=== PATIENT | male | born 1980 | race Caucasian/White ===

== ENCOUNTER 2016-10-15 12:37 | Emergency (ER) | payer OTHER ==
[~2016-10-15 12:37] MED LIST: DRV65 PO
[2016-10-15 12:41] VITALS: TEMP 36.7
[2016-10-15] MEDS ORDERED: CEFAZOLIN SOD 1000MG/55 ML D5W IV STA (13:07)
[2016-10-15] MEDS ORDERED: IBUPROFEN 800 MG TAB PO STA (13:07)
[2016-10-15] MEDS ORDERED: SULFAMETHOXAZOLE/TRIMETHOPRIM DS 800/160MG TAB PO STA (13:07)
[2016-10-15] MEDS ORDERED: PRLSR20 PO (13:17)
[2016-10-15] MEDS ORDERED: NAPR1TAB9 PO (13:19)
[2016-10-15 13:44] LABS: BASO % 0.4 %; BASO ABS # 0.03 K/uL (0-0.2); COMPLETE YES; EOS % 2.6 %; HEMATOCRIT 45.3 % (42-52); IG% 0.1 %; LYMPH ABS # 2.17 K/uL (1.2-3.4); MEAN CELL VOLUME 86.6 fL (80-100); MEAN CORPUSCULAR HEMOGLOBIN 30.4 pg (25-34); MEAN CORPUSCULAR HGB CONC 35.1 g/dl (32-36); MEAN PLATELET VOLUME 10.2 fL (7.4-10.4); MONO % 6.3 %; NEUT % 59.6 %; PLATELET COUNT 288 K/uL (130-400); RED BLOOD COUNT 5.23 M/uL (4.7-6.1)
[2016-10-15 14:00] LABS: BLOOD UREA NITROGEN 9 mg/dl (7-18); BUN/CREATININE RATIO 7.3 (10-20); C-REACTIVE PROTEIN < 0.29 mg/dl (0-0.29); CARBON DIOXIDE 27 mmol/L (21-32); CHLORIDE 106 mmol/L (98-107); GLUCOSE 103 mg/dl (70-99); POTASSIUM 3.8 mmol/L (3.5-5.1); SODIUM 140 mmol/L (136-145)
[2016-10-15 14:03] LABS: CALCIUM 9.2 mg/dl (8.5-10.1)
--- NOTE | 2016-10-15 14:14 | DIAGNOSTIC IMAGING REPORT ---
LEFT HAND MIN 3 VIEWS ROUTINE CLINICAL HISTORY: Left hand pain, swelling, redness. COMPARISON: None. DISCUSSION: No fractures or dislocations are visualized. There is a tiny foreign body visualized level of the second metacarpal phalangeal joint. There is no erosive disease. There is minor soft tissue swelling IMPRESSION: 1. No fractures identified 2. No destructive lesions are visualized 3. Tiny presumed foreign body visualized at the level of the second metacarpal phalangeal joint. Electronically signed by: Evan Howell M.D. 10/15/2016 2:13 PM Dictated Date/Time: 10/15/2016 2:11 PM
[2016-10-15] MEDS ORDERED: CEPH500C PO (15:21)
[2016-10-15] MEDS ORDERED: SULF800T23 PO (15:21)
--- NOTE | 2016-10-15 15:24 | EMERGENCY ROOM VISIT NOTE ---
History First contact with patient: 12:56 Chief Complaint: HAND PAIN/INJURY Stated Complaint: SWOLLEN LEFT HAND History of Present Illness The patient is a 36 year old male who presents to the Emergency Room with complaints of redness, swelling, pain to his left hand that started last night. Patient went to urgent care today, was sent here with concern for infection. Patient states that he started with swelling and pain in his left third finger last night, that has spread today to the top of his hand. He denies fevers or chills or malaise, states he has generally been feeling well, although 2 days ago he did have what he thought was a stomach bug with vomiting and diarrhea, which he states is now resolved. Patient denies any injury to the hand, but does note that it was itching earlier and he was scratching at it. He denies any rash. Review of Systems GENERAL: Denies fevers, chills, malaise, fatigue, unplanned weight change. HEENT: Denies dizziness, visual problems, hearing loss, tinnitus. Denies difficulty swallowing or oral lesions. PULMONARY: Denies cough, shortness of breath, sputum production or hemoptysis. CARDIOVASCULAR: Denies chest pain, palpitations, dyspnea on exertion, orthopnea or peripheral edema. GASTROINTESTINAL: Denies diarrhea, constipation, nausea, vomiting, or abdominal pain. GENITOURINARY: Denies dysuria, frequency, urgency or nocturia. NEUROLOGIC: Denies history of epilepsy, CVA, TIA or chronic headaches. MUSCULOSKELETAL: Denies history of joint tenderness/swelling. SKIN: Denies rashes or lesions. Redness and swelling of the left hand and third finger. PSYCHIATRIC: Denies history of depression or mental illness. ENDOCRINE: Denies history of diabetes, thyroid disorders, abnormal hair growth or sexual dysfunction. Social History Smoking Status: Never Smoker Current/Historical Medications Scheduled Cephalexin Monohydrate (Keflex), 500 MG PO QID Naproxen (Aleve), 440 MG PO DAILY Sulfamethoxazole-Trimethoprim (Bactrim Ds 800MG/160MG), 1 TAB PO BID Scheduled PRN Omeprazole (Prilosec), 20 MG PO DAILY PRN for Heartburn Allergies Coded Allergies: No Known Allergies (Unverified , 10/15/16) Physical Exam Vital Signs Date Time Temp Pulse Resp B/P Pulse Ox O2 Delivery O2 Flow Rate FiO2 10/15/16 15:57 80 20 141/78 96 10/15/16 14:29 68 138/84 98 Room Air 10/15/16 12:41 36.7 82 20 134/98 96 Room Air Physical Exam CONSTITUTIONAL: No acute distress. Well appearing and well nourished. Alert and oriented X 4 with normal affect. HEENT: Normocephalic, atraumatic. Pupils equal, round and reactive to light, EOMI. TMs normal. Pharynx normal. NECK: Supple, full active range of motion without discomfort. RESPIRATORY: Clear to auscultation bilaterally with no wheezing, crackles, rhonchi or stridor. Equal expansion bilaterally. CARDIOVASCULAR: Regular rate and rhythm with no murmurs, rubs or gallops. Normal peripheral perfusion. No edema. GASTROINTESTINAL: Soft, nontender, nondistended. Bowel sounds present in all quadrants. MUSCULOSKELETAL: Full range of motion of all joints without discomfort. There is mild swelling and erythema to the left third finger and dorsum of the left hand, tender to palpation, slightly warm to touch. No abscess noted. INTEGUMENTARY: No rash or other significant dermatologic conditions noted. NEUROLOGIC: Cranial nerves II-XII grossly intact. No focal neurologic deficits noted. Medical Decision & Procedures ER Provider Diagnostic Interpretation: LEFT HAND MIN 3 VIEWS ROUTINE CLINICAL HISTORY: Left hand pain, swelling, redness. COMPARISON: None. DISCUSSION: No fractures or dislocations are visualized. There is a tiny foreign body visualized level of the second metacarpal phalangeal joint. There is no erosive disease. There is minor soft tissue swelling IMPRESSION: 1. No fractures identified 2. No destructive lesions are visualized 3. Tiny presumed foreign body visualized at the level of the second metacarpal phalangeal joint. Laboratory Results 10/15/16 13:30 Red Blood Count 5.23, Mean Corpuscular Volume 86.6, Mean Corpuscular Hemoglobin 30.4, Mean Corpuscular Hemoglobin Concent 35.1, Mean Platelet Volume 10.2, Neutrophils (%) (Auto) 59.6, Lymphocytes (%) (Auto) 31.0, Monocytes (%) (Auto) 6.3, Eosinophils (%) (Auto) 2.6, Basophils (%) (Auto) 0.4, Neutrophils # (Auto) 4.17, Lymphocytes # (Auto) 2.17, Monocytes # (Auto) 0.44, Eosinophils # (Auto) 0.18, Basophils # (Auto) 0.03 10/15/16 13:30 Test 10/15/16 13:30 White Blood Count 7.00 K/uL (4.8-10.8) Red Blood Count 5.23 M/uL (4.7-6.1) Hemoglobin 15.9 g/dL (14.0-18.0) Hematocrit 45.3 % (42-52) Mean Corpuscular Volume 86.6 fL (80-100) Mean Corpuscular Hemoglobin 30.4 pg (25-34) Mean Corpuscular Hemoglobin Concent 35.1 g/dl (32-36) Platelet Count 288 K/uL (130-400) Mean Platelet Volume 10.2 fL (7.4-10.4) Neutrophils (%) (Auto) 59.6 % Lymphocytes (%) (Auto) 31.0 % Monocytes (%) (Auto) 6.3 % Eosinophils (%) (Auto) 2.6 % Basophils (%) (Auto) 0.4 % Neutrophils # (Auto) 4.17 K/uL (1.4-6.5) Lymphocytes # (Auto) 2.17 K/uL (1.2-3.4) Monocytes # (Auto) 0.44 K/uL (0.11-0.59) Eosinophils # (Auto) 0.18 K/uL (0-0.5) Basophils # (Auto) 0.03 K/uL (0-0.2) RDW Standard Deviation 44.0 fL (36.4-46.3) RDW Coefficient of Variation 14.0 % (11.5-14.5) Immature Granulocyte % (Auto) 0.1 % Immature Granulocyte # (Auto) 0.01 K/uL (0.00-0.02) Erythrocyte Sedimentation Rate 6 mm/hr (0-14) Anion Gap 7.0 mmol/L (3-11) Estimated GFR () 90.3 Estimated GFR (Non- 77.9 BUN/Creatinine Ratio 7.3 (10-20) Calcium Level 9.2 mg/dl (8.5-10.1) C-Reactive Protein < 0.29 mg/dl (0-0.29) Medications Administered Medications (Trade) Dose Ordered Sig/Miihr Route Start Time Stop Time Status Last Admin Dose Admin Cefazolin Sodium (Ancef 1000mg/55 ml D5W) 1,000 mg NOW STAT IV 10/15/16 13:07 10/15/16 13:10 DC 10/15/16 13:35 1,000 MG Trimethoprim/ Sulfamethoxazole (Septra Ds 800/ 160MG Tab) 1 tab NOW STAT PO 10/15/16 13:07 10/15/16 13:10 DC 10/15/16 13:36 1 TAB Ibuprofen (Motrin Tab) 800 mg NOW STAT PO 10/15/16 13:07 10/15/16 13:10 DC 10/15/16 13:36 800 MG Medical Decision Erythema, swelling, tenderness to the left third finger and dorsum of the hand, consistent with cellulitis. No area of fluctuance to suggest abscess formation. X-ray of the hand shows no bony abnormality. Labs assessed which are unremarkable. He is afebrile with normal vital signs. Patient given 1 dose of IV Ancef and 1 dose of by mouth Bactrim, sent out with Rx for by mouth Keflex and Bactrim and instructed to follow closely with his PCP in the next 1- 2 days. He was also given strict return precautions should his symptoms worsen patient verbalized understanding. Impression Primary Impression: Cellulitis of hand, left Departure Information Prescriptions Sulfamethoxazole-Trimethoprim (Bactrim Ds 800MG/160MG) 1 Tab Tab 1 TAB PO BID for 7 Days, #14 TAB Prov: Renae Huggins CRNP 10/15/16 Cephalexin Monohydrate (Keflex) 500 Mg Cap 500 MG PO QID for 7 Days, #28 CAP Prov: Renae Huggins CRNP 10/15/16 Referrals Yonatan Freeman M.D. (PCP) Patient Instructions My [facility] Additional Instructions Follow up with your primary care doctor in the next 1-2 days to have your hand rechecked. Take both antibiotics as prescribed for 7 days. This is to treat your infection. You may take Tylenol or ibuprofen as needed for pain. Apply warm compresses to your hand to help with swelling. Please return to the ER for any worsening symptoms, including increased redness , swelling, pain, developing wound or drainage, red streaking up the hand/arm, fevers/chills, or any other concerns.
[2016-10-15 15:57] VITALS: BP 141/78; PULSE 80; O2SAT 96
== END 2016-10-15 15:59 | disposition home or self-care (01) ==
LOC: C.EDB 12:38 → C.EDD 15:59
DX: L03.114 Cellulitis of left upper limb (principal)